=== PATIENT | female | born 1945 | race Hispanic/Latino ===

== ENCOUNTER 2018-05-22 05:57 | Day surgery (SDC) | payer OTHER ==
[2018-05-20 11:30] LABS: Absolute Lymphocytes (CBC) 1.9 K/uL (0.7-4.9); Absolute Monocytes 0.4 K/uL (0.1-1.3); Absolute Neutrophil 3.3 K/uL (1.8-8.0); Basophils % 0.7 % (0-1.3); Eosinophils % 1.7 % (0-4.4); Hematocrit 36.9 % (36.0-45.0); Lymphocytes % 32.6 % (15.3-44.8); MCH 23.1 pg (27.0-35.0); MCV 70.6 fL (80-100); MPV 8.2 fL (7.6-11.3); Monocytes % 7.2 % (3.3-12.3); RBC Red Blood Cell Count 5.23 M/uL (3.86-4.86)
[2018-05-20 11:39] LABS: Protime INR 1.03
[2018-05-20 11:51] LABS: Urine Appearance CLOUDY; Urine Color YELLOW
[2018-05-20 11:52] LABS: Urine Bilirubin NEGATIVE (NEG); Urine Blood 3+ (NEG); Urine Glucose NEGATIVE (NEG); Urine Microscopic Reflex ORDER UMIC; Urine Protein NEGATIVE (NEG); Urine Urobilinogen 0.2 mg/dL (0.2-1.0)
[2018-05-20 11:53] LABS: BUN Blood Urea Nitrogen 14 mg/dL (7-18); Bicarbonate 30 mmol/L (21-32); Glucose Level 93 mg/dL (74-106); Potassium 3.4 mmol/L (3.5-5.1); Sodium Level 142 mmol/L (136-145)
[2018-05-20 12:15] LABS: Urine Bacteria <20 /HPF (<20); Urine Culture Reflex Order REFLEXED; Urine Mucus MOD /HPF (NONE SEEN)
[2018-05-20 12:16] LABS: Calcium Oxalate Crystals- Ur MANY (NONE SEEN)
[2018-05-22] MEDS ORDERED: SCOPOLAMINE HYDROBROMIDE PATCH TD ONE (06:25)
[2018-05-22] MEDS ORDERED: Ringers Lactate 1,000 ML IV ONE ×3 (06:25→12:52)
[2018-05-22] MEDS ORDERED: PROPOFOL 200 MG/20 ML VIAL IV ONE (07:01)
[2018-05-22] MEDS ORDERED: ROCURONIUM 50 MG/5 ML VIAL IV ONE (07:02)
[2018-05-22] MEDS ORDERED: GLYCOPYRROLATE 0.2 MG/ML SYR ONE ×3 (07:03→10:29)
[2018-05-22] MEDS ORDERED: LIDOCAINE 2% MPF 5 ML VIAL ONE (07:03)
[2018-05-22] MEDS ORDERED: FENTANYL CITR 250 MCG/5 ML ONE (07:04)
[2018-05-22] MEDS ORDERED: ONDANSETRON HCL 40 MG/20 ML VIAL ONE ×2 (07:05→10:22)
[2018-05-22] MEDS: CEFAZOLIN/SWI 1gm 1 GM/10 ML SYR ONE ×2 (07:28→07:30)
[2018-05-22] MEDS: NA CHLORIDE 0.9% 1,000 ML ONE ×2 (07:28→07:29)
[2018-05-22] MEDS ORDERED: EPHEDRINE SULF 50 MG/10 ML SYR ONE (08:44)
[2018-05-22] MEDS ORDERED: NEOSTIGMINE 1 MG/ML -5 ML SYRINGE ONE (10:22)
[2018-05-22] MEDS ORDERED: CEFAZOLIN SODIUM 1 GM/VIAL ONE (10:22)
[2018-05-22] MEDS ORDERED: KETOROLAC 30 MG/ML INJ ONE (10:24)
[2018-05-22] MEDS ORDERED: METHYLENE BLUE 0.5% 10 ML AMP ONE (10:27)
[2018-05-22] MEDS ORDERED: HYDROCODONE/APAP 5/325 MG TAB ONE (13:45)
[2018-05-22 15:33] VITALS: BP 97/65; TEMP 96.7; O2SAT 98
--- NOTE | 2018-05-23 05:03 | OP ---
Date of Procedure: 05/22/2018 Surgeon: Shreya Lozano MD Program Director Substance Abuse: Chikis Odonnell. Preoperative Diagnoses: Fibroid of the uterus, left ovarian cyst, possible right ovarian cyst, pelvi c pain. Postoperative Diagnoses: Fibroids and left ovarian cyst, adhesions of the omentum and sigmoid colon. Procedures Performed: Total laparoscopic hysterectomy, bilateral salpingo-oophorectomy, pelvic washi ngs, lysis of adhesions, and cystoscopy. Anesthesia: General endotracheal. Estimated Blood Loss: Minimal. Complications: None. Drains: None. Condition: Stable. Indications: The patient is a 72-year-old with possibly enlarging fibroids and pelvic pain and known history of cyst, which have progressively increased in size with observation over the past 2 years. After medical clearance was done, she was consented for the surgery for hysterectomy, bilateral salp ingo-oophorectomy, and pelvic washings. Her CA-125 and CAT scan were negative for any changes consis tent with ovarian cancer. Description Of Procedure: After informed consent was verified, she was taken back to the OR. A gram of Ancef was given. She was placed in a dorsal lithotomy position using Timbo stirrups. Pelvic exa m was performed. It showed an enlarged fibroid uterus mostly extending posteriorly. No adnexal mass es were noted. Uterus appeared to be mobile. After abdomen, vulva, vagina, and perineum were prepped and draped in a sterile fashion, Fuentes was pl aced to drain the bladder and attached to cysto-tubing to an LR bag, emptied 300. Then, a large VCar e was fixed into place in the usual fashion with a tight-fitting of the vaginal cup because of the na rrow introitus; however, this was managed gently with some lubrication and fixed in place. This area was then draped. A 1 cm infraumbilical incision was made with a scalpel. Fascia incised and tagged. Peritoneum enter ed bluntly and S retractors placed to introduce the Renee. Site of entry was checked, unremarkable. Upper abdominal surfaces, liver, and gallbladder were unremarkable as well. There were dense oment al adhesions all along the anterior abdominal wall from the left side all the way to the left sidewal l all the way to the infundibulopelvic ligament and adhesions to the distal part of the tube as well as the proximal part of the tube. Medial aspect of the ovary was also adhered to the omental adhesio ns. A 10 mm suprapubic port and a 5 mm left lower quadrant ports were placed under direct vision. T hen, the adhesions were taken down first on the left side in systematic fashion with push-spread tech nique creating windows and taken down with the help of sharp scissors. These were taken down all the way to the level of the left paracolic gutter, and the omental adhesions here were had to be taken d own in order for me to visualize the infundibulopelvic ligament. These were all taken down in multip le layers. Once 5 cm cephalad to the infundibulopelvic ligaments entry into the ovary, the adhesions were cleared, then I was able to visualize the ovarian adhesions. These were taken down as well fro m the sigmoid. Then, there was a dense sigmoid adhesion to the proximal part of the fallopian tube a ll the way retracting the round ligament and the entire anterior broad ligament posteriorly. This wa s a very dense adhesion, and it was not a diverticulum, so this was taken down with the help of lapar oscopic scissors. Other omental adhesions adhesions to the tube were taken down as well, and once all this was cleared, the ovary and tube on the right side were able to be retracted. The tube in the distal part appeare d to be scarred in multiple places. Once this was all cleared up and a normal anatomy was restored, both the ureters were visualized in their location from the pelvic brim to the ureteric tunnel. Ther e appeared to be endometriosis in the posterior cul-de-sac especially in the uterosacral ligament att achment area in the distal part of the ligament to the uterus especially on the left side. There was scarring in the anterior cul-de-sac as well where the bladder was densely adherent to the anterior v aginal wall or precervical fascia. The utero-ovarian ligament and the mesosalpinx tube, round ligament were all taken down on the left s tima with the help of the 5 mm curved tip LigaSure. Then, the anterior and posterior broad ligaments were opened up. Anterior broad ligament was taken up all the way to the level of the bladder flap on the opposite side. However, the bladder dissection here was not very easy and did not peel down on the anterior vaginal wall. Then, posterior broad ligament was opened up and the endometriosis was al so included in the dissection while opening of the peritoneum and taking it down to the level of the distal uterosacral. The endometriosis was left along with the uterine specimen. There was a small amount of endometriosis on the lateral aspect of the peritoneum which was taken christa n with the help of the LigaSure, not leaving any visible implants on the peritoneum. The broad ligam ent was skeletonized to expose the vessels very well. Once this was done, then dissection was perfor med on the opposite side. The utero-ovarian ligament, the mesosalpinx, and the round ligament were a ll taken down. The posterior broad ligament was taken down all the way to the level of the right jillian rosacral attachment, and the entire cul-de-sac peritoneum was also excised keeping the implants off t he uterus. Then anteriorly, the broad ligament was taken down to connect the bladder flap. Once dis secting the bladder flap, there were dense adhesions especially in the lateral aspect. So, once the precervical fascia was exposed to the anterior vaginal wall, here monopolar hook blade was used to ma ke an incision so that the vesicovaginal space was entered. Once the vesicovaginal space was entered in the midline, this was dissected down easily with retracting the peritoneum and the bladder flap s uperiorly and taking down the vesicovaginal space with the help of blunt dissection. As needed, bipo lar was used for cauterization. Then laterally, this had to be dissected in order for me to visualiz e the entire VCare cup, and this dissection was performed on both sides. The fat above the bladder a ppeared to be densely adherent to the underlying murillo. This was taken down with the help of the Lig aSure and on the left side as well as on the right side. Once the VCare cup was well exposed, there were medial incisions with monopolar that were made to the vessels so the pedicles of the vessels cou ld be taken down with the help of the basket tip bipolar cautery and then followed by the LigaSure. The cardinal ligaments were also taken down with the help of the LigaSure first on the right side the n on the left side. As the lateral dissection was being performed on the anterior vaginal wall later al to the VCare cup, there was bleeding after the uterine vessel was taken down and as this vein retr acted laterally this was picked up with the tip of a [place] grasper and attempt was made to place a clip here. However, the vein was very small, and it was very difficult to place a clip without gregory villa concerned for the left distal part of the ureter. So, the clip was removed and pressure was held o n the vein. This completely clotted off without any further active bleeding. So, at this point, I l eft this alone, took down the cardinal ligaments gently, and the VCare cup was exposed. Circumferent ial colpotomy was performed with a monopolar hook blade staying medial to the inside of the both groo ves of the cup. The cup was slightly larger for the size of the cervix. Once the entire specimen wa s , the VCare was removed, and the cervix was grasped with the help of Allis clamps and kept in the vagina. The specimen would know fit through the colpotomy and therefore had to be morcellate d so this was left alone. Ovaries on both sides were taken down by dissecting down the IP ligaments after isolating the tube and then ovary removed on both sides without rupturing the cyst on the left ovary. This was left in the cul-de-sac so I could remove that at the end. The one on the right side was placed on tie, and this was pulled out through the vagina as the uterus was morcellated. We went down vaginally and morcellated the uterus after bivalving the cervix all the way to the level of the posterior fibroid. The fibroid was held with mass clamps, and this was morcellated removing the specimen completely. Then, the uterus was able to be slipped up. Vaginal occluder was placed wi th the help of sponge, tucked in glove since the usual bulb was too large for the vaginal caliber for this patient. After thorough irrigation and suction, there was excellent hemostasis at the vaginal cuff. A 0 Vicry l suture was placed at the angle on the left side, then on the right side and simple sutures were genevieve renu here and 2 [id number] were placed in the middle to appose both anterior and posterior vagin al murillo. Once this was done in a healthy fashion, there was excellent hemostasis. No evidence of a ny electrical, mechanical, or thermal injury apparently to both ureters. We left the incisions open and then went down to do a cystoscopy as the Fuentes was removed. There was 250 mL of clear urine that was made. This was all after initially draining the bladder completely at the beginning of the case . This was the urine output for the duration of the surgery. The entire bladder was visualized including the base, the trigone, the sidewalls, no evidence of any injury or foreign body. Both ureteric orifices were well visualized. There was immediate strong jet of urine from the right side. There were small jets of urine from both ureteric orifices initially. So, methylene blue was given, and there appeared to be a strong jet of urine from both ureteric vimal fices. The right one was more readily seen. The left one had small squirts followed by a nice long squirt. So, at this point, there was no acute concern for any ureteric injury. So, the bladder was drained. The vagina was cleaned up. Gloves and gown were changed. We then went back up and removed the trocars, closed the umbilical incision with a [id number] 0 Vicryl suture. All skin incisio ns closed with the help of interrupted 4-0 Monocryl. Instrument, needle, and sponge counts were mayte ect at the end of the case. The patient tolerated the procedure well. There was excellent hemostasi s. Before the Renee was removed, an EndoCatch bag was placed through the umbilical port while the s uprapubic port was used for the camera. The left ovary was placed in the bag, and it was removed int act through the umbilical incision. Then, the closure was done as dictated above. Instrument, needl e, and sponge counts x3 were correct at the end of the case. The patient tolerated the procedure wel l. She was recovered from anesthesia and taken to PACU in stable condition. She will follow up with me in 1 week. All precautions given, and procedure explained to her family. QAMAR/SOFÍA Voice ID: [id number] Report ID: [id number]
== END 2018-05-22 15:35 | disposition home or self-care (01) ==
LOC: OR 05:57
PROVIDERS: ATTEND Obstetrics & Gynecology
PROC: 0UT24ZZ Resection of Bilateral Ovaries, Percutaneous Endoscopic Approach (ICD-10-PCS; 2018-05-22)
PROC: 0UT74ZZ Resection of Bilateral Fallopian Tubes, Percutaneous Endoscopic Approach (ICD-10-PCS; 2018-05-22)
PROC: 0DNU4ZZ Release Omentum, Percutaneous Endoscopic Approach (ICD-10-PCS; 2018-05-22)
PROC: 0UT94ZZ Resection of Uterus, Percutaneous Endoscopic Approach (ICD-10-PCS; principal; 2018-05-22 07:00)
DX: D25.9 Leiomyoma of uterus, unspecified (principal); N83.292 Other ovarian cyst, left side; K66.0 Peritoneal adhesions (postprocedural) (postinfection); Z82.49 Family history of ischemic heart disease and other diseases of the circulatory system; E78.00 Pure hypercholesterolemia, unspecified; I10 Essential (primary) hypertension
CPT/HCPCS: 36415; 49329; 58571; 80048; 85025; 85610; 85730; 86850; 86900; 86901; 87086; 87088; 88108; 88305; 88307; J0690 ×2; J2405 ×2; J2710; J7030; 81003; 81015